=== PATIENT | female | born 1945 | race Caucasian/White ===

== ENCOUNTER 2023-01-20 06:34 | Day surgery (SDC) | payer MEDICARE, OTHER ==
[2023-01-20] MEDS ORDERED: Sodium Chloride 0.9% 1,000 ML IV SCH (07:00)
[2023-01-20] MEDS ORDERED: Propofol 200 MG/20 ML SDV ONE (07:12)
[2023-01-20] MEDS ORDERED: fentaNYL 50 MCG/ML SDV ONE (07:13)
== END 2023-01-20 09:31 | disposition home or self-care (01) ==
LOC: JP.SDS 06:34
PROVIDERS: ATTEND Internal Medicine
DX: K92.2 Gastrointestinal hemorrhage, unspecified (principal); E78.00 Pure hypercholesterolemia, unspecified; Z86.010 Personal history of colon polyps
CPT/HCPCS: 45378; J2704; J3010; J7030